=== PATIENT | male | born 1990 | race Caucasian/White ===

== ENCOUNTER 2016-06-29 05:20 | Emergency (ER) | payer OTHER ==
[~2016-06-29] VITALS: Ht 180.3 cm; Wt 79.8 kg
[2016-06-29 05:35] VITALS: BP 144/85
[2016-06-29] MEDS ORDERED: ONDANSETRON 4 MG ORAL DISINTEGRATING TAB (S0181) PO ONE (07:30)
[2016-06-29] MEDS ORDERED: DOXYCYCLINE HYCLATE 100 MG TAB PO ONE (07:30)
[2016-06-29] MEDS ORDERED: DOXY100C37 PO (07:40)
[2016-06-29] MEDS ORDERED: ZOFR4TAB3 PO (07:40)
[2016-07-01 00:08] LABS: Lyme Disease IgG/IgM Antibodie <0.91 ISR (0.00-0.90); Lyme Disease IgM Ab Quantitati <0.80 index (0.00-0.79)
== END 2016-06-29 08:09 | disposition home or self-care (01) ==
LOC: M ED 07:17
DX: A69.20 Lyme disease, unspecified (principal)